=== PATIENT | male | born 1955 ===

== ENCOUNTER 2021-05-06 05:10 | Emergency (ER) | payer OTHER ==
[~2021-05-06] VITALS: Ht 172.7 cm; Wt 99.8 kg
[2021-05-06 06:24] VITALS: BP 147/91
[2021-05-06] MEDS ORDERED: ACETAMINOPHEN/CODEINE#3 (300/30mg) TAB PO ONE (06:30)
[2021-05-06] MEDS ORDERED: ONDANSETRON ODT 4 MG TAB PO ONE (06:30)
[2021-05-06] MEDS ORDERED: AMOX-277 PO (07:50)
[2021-05-06] MEDS ORDERED: ACET-1158 PO (07:50)
== END 2021-05-06 07:58 | disposition home or self-care (01) ==
LOC: ER 05:10
DX: U07.1 COVID-19 (principal); G43.909 Migraine, unspecified, not intractable, without status migrainosus; J06.9 Acute upper respiratory infection, unspecified; I10 Essential (primary) hypertension; E78.5 Hyperlipidemia, unspecified
CPT/HCPCS: 36415; 70450; 71045; 87426; 99285; Q0162